=== PATIENT | male | born 1935 | race Caucasian/White ===

== ENCOUNTER 2022-02-15 02:20 | Emergency (ER) | payer OTHER, MEDICAID ==
[~2022-02-15] VITALS: Ht 185.4 cm; Wt 77.1 kg
[2022-02-15 02:30] VITALS: BP 113/59
--- NOTE | 2022-02-15 02:30 | NUR ---
TO BED VIA WHEELCHAIR
--- NOTE | 2022-02-15 03:16 | NUR ---
Patient stated he "has been having pain from not urinating."
--- NOTE | 2022-02-15 04:28 | NUR ---
"Pressure relieved by catheter" insertion per patient stated.
[2022-02-15 04:51] LABS: APPEARANCE,URINE CLEAR (CLEAR); BILIRUBIN,URINE NEGATIVE (NEGATIVE); BLOOD, URINE TRACE-I (NEGATIVE); COLOR,URINE YELLOW (YELLOW); LEUKOCYTE ESTERASE ,URINE NEGATIVE (NEGATIVE); NITRITE, URINE POSITIVE (NEGATIVE); PH,URINE 5.5 (5.0-9.0); UGLUCOSE NEGATIVE (NEGATIVE)
[2022-02-15 05:13] LABS: RBC,URINE 20-50 /HPF (0-5); WBC,URINE 0-5 /HPF (0-5)
[2022-02-15] MEDS ORDERED: CEPH-588 PO (05:39)
--- NOTE | 2022-02-15 06:09 | NUR ---
Dr. Connell stated "patient is to be discharged with hilario catheter and leg bag." Patient's family and patient educated on use and care of hilario catheter and legbag. Patient's family and patient verbalized understanding of education, no further questions. Patient is A/Ox4, skin intact, Hilario catheter intact and patent, no c/o pain or s/s of distress.
[2022-02-15 06:12] VITALS: BP 119/74
--- NOTE | 2022-02-15 06:20 | NUR ---
Patient discharged with v/s stable. Written and verbal after care instructions given and explained. Patient alert, oriented and verbalized understanding of instructions. Wheel Chair Assisted with to car. All questions addressed prior to discharge. ID band removed. Patient advised to follow up with PMD. Rx of given. Patient educated on indication of medication including possible reaction and side effects. Opportunity to ask questions provided and answered.
== END 2022-02-15 06:20 | disposition home or self-care (01) ==
LOC: MED 02:20
DX: N39.0 Urinary tract infection, site not specified (principal); Z79.899 Other long term (current) drug therapy; Z98.890 Other specified postprocedural states
CPT/HCPCS: 51702; 81001; 87086; 99285